=== PATIENT | female | born 1940 | race Caucasian/White ===

== ENCOUNTER 2017-02-10 10:33 | Inpatient (IN) | payer MEDICARE, MEDICAID ==
[~2017-02-10] VITALS: Ht 167.6 cm; Wt 74.8 kg
[~2017-02-10 10:33] MED LIST: CLON0.5T4 PO; DONE10TA44 PO; ESCI10TA PO; ESOM40CA PO; IBUP-1955 PO; LEVO50TA8 PO; MEMA5TAB PO; RIVA1PAT3 TD; VALS1TAB6 PO
--- NOTE | 2017-02-10 10:40 | NUR ---
Pt bib ra from home for back pain x 3 weeks, chronic back pain. Pt no s/sx of sob. Made pt comfortable and safety measures in placed
[2017-02-10] MEDS ORDERED: ACETAMINOPHEN ES 500 MG TABLET PO ONE (11:00)
[2017-02-10 11:05] LABS: BASOPHILS % (AUTO) 0.4 % (0.0-2.0); EOSINOPHILS % (AUTO) 0.7 % (0.0-6.0); HEMATOCRIT 23 % (33-45); HEMOGLOBIN 7.5 g/dL (11.5-14.8); LYMPHOCYTES # (AUTO) 1.3 /CMM (0.8-4.8); LYMPHOCYTES % (AUTO) 30.6 % (20.0-44.0); MEAN CORPUSCULAR HEMOGLOBIN 29 PG (26.0-33.0); MEAN CORPUSCULAR HGB CONC 33 g/dl (31.0-36.0); MEAN CORPUSCULAR VOLUME 88 fL (82-100); MONOCYTES # (AUTO) 0.3 /CMM (0.1-1.30); MONOCYTES % (AUTO) 6.9 % (2.0-12.0); NEUTROPHILS # (AUTO) 2.8 /CMM (1.8-8.9); NEUTROPHILS % (AUTO) 61.4 % (43.0-81.0); PLATELET COUNT (AUTO) 282 /CMM (150-450); RDW COEFFICIENT OF VARIATION 15.5 (11.5-15.0); WHITE BLOOD COUNT (AUTO) 4.4 K/uL (4.3-11.0)
[2017-02-10 11:16] LABS: CALCIUM, SERUM 7.5 mg/dL (8.5-10.1); CREATININE 0.9 mg/dL (0.6-1.3); POTASSIUM 3.6 mmol/L (3.5-5.1)
[2017-02-10 11:26] LABS: ALBUMIN 2.5 g/dL (3.4-5.0); BILIRUBIN,DIRECT 0.1 mg/dL (0.0-0.2); BILIRUBIN,TOTAL 0.5 mg/dL (0.2-1.0); TOTAL PROTEIN, SERUM 12.4 g/dL (6.4-8.2)
[2017-02-10] MEDS ORDERED: MORPHINE SULFATE INJ 2 MG/ML DISP.SYRIN ONE ×2 (11:28→12:58)
[2017-02-10] MEDS ORDERED: ONDANSETRON 4 MG TAB.RAPDIS ONE (11:28)
[2017-02-10] MEDS ORDERED: MORPHINE SULFATE INJ 2 MG/ML DISP.SYRIN IM ONE (11:30)
[2017-02-10] MEDS ORDERED: ONDANSETRON 4 MG TAB.RAPDIS SL ONE (11:30)
[2017-02-10] MEDS ORDERED: GADOVERSETAMIDE 5 MMOL/10 ML VIAL IJ ONE (12:00)
[2017-02-10] MEDS ORDERED: GADOVERSETAMIDE 2.5 MMOL/5 ML VIAL IJ ONE (12:00)
--- NOTE | 2017-02-10 12:45 | NUR ---
CALLED NURSING SUP. FOR MS BED
--- NOTE | 2017-02-10 12:51 | NUR ---
EPIC PAGED, VIDEO GAME ENGINEER
[2017-02-10] MEDS ORDERED: MORPHINE SULFATE INJ 2 MG/ML DISP.SYRIN IV ONE (13:00)
[2017-02-10] MEDS ORDERED: MAG HYDROX/AL HYDROX/SIMETH 30 ML UDC PO PRN (13:00)
--- NOTE | 2017-02-10 13:10 | NUR ---
PT WILL GO TO MS 203
[2017-02-10 13:29] LABS: IRON, SERUM 56 ug/dl (50-175); TOTAL IRON BINDING CAPACITY 245 ug/dl (250-450)
--- NOTE | 2017-02-10 13:37 | NUR ---
GAVE REPORT TO [facility] ROOM 203
--- NOTE | 2017-02-10 14:14 | NUR ---
TRANSPORT PT TO [facility]. PT TRANSFER IN STABLE CONDITION
[2017-02-10 14:41] LABS: APPEARANCE,URINE Cloudy (CLEAR); BILIRUBIN,URINE Negative (NEGATIVE); BLOOD, URINE Negative Ery/uL (NEGATIVE); COLOR,URINE Yellow (YELLOW); KETONES,URINE Negative (NEGATIVE); LEUKOCYTE ESTERASE ,URINE Trace (NEGATIVE); NITRITE, URINE Negative (NEGATIVE); PH,URINE 7.5 (5.0-8.0); PROTEIN,URINE 30 mg/dl (NEGATIVE); UGLUCOSE Negative (NEGATIVE); UROBILINOGEN,URINE 0.2 EU/dL (0.2)
[2017-02-10 14:53] LABS: RBC,URINE 0-2 /HPF (0-2)
[2017-02-10 14:54] LABS: ADD URINE CULTURE YES; BACTERIA,URINE Many /HPF (None Seen); SQUAMOUS EPITHELIAL CELL,UR Few /HPF (None Seen)
--- NOTE | 2017-02-10 14:54 | NUR ---
MS RN INITIAL NOTES PATIENT RECEIVED FROM ER. NO SOB OR DISTRESS NOTED AT THIS TIME. PATIENT IS COMPLAINING OF PAIN. VITALS CHECKED AND RECORDED. DR HERNANDEZ ON FLOOR. MD HAS CONSULTED DR HEREDIA. STATES TO NO BLOOD NEEDED FOR NOW AND TO MONITOR CLOSELY. WILL CONTINUE TO MONITOR AND FOLLOW UP ON PAIN MEDS.
[2017-02-10] MEDS: IV NS 0.9% 1,000 ML IV PRN (15:42)
[2017-02-10] MEDS: HYDROCODONE/APAP 5/325MG 1 EACH TABLET PO PRN (15:43)
--- NOTE | 2017-02-10 15:58 | NUR ---
MS RN NOTES ASKED FAMILY ABOUT THE EXCELON PATCH. DAUGHTERS DO NOT KNOW THE DOSE, THEY STATE THEY WILL FIND OUT WHEN THEY GO HOME LATER TONIGHT.
[2017-02-10 16:00] VITALS: BP 132/69
--- NOTE | 2017-02-10 16:17 | NUR ---
TEXTED DR. WOODS FOR MRI L SPINE APPROVAL.
--- NOTE | 2017-02-10 16:18 | NUR ---
MRI APPROVED.PLEASE HAVE MRI CHECKLIST READY.
[2017-02-10] MEDS: MEMANTINE HCL 5 MG TABLET PO SCH ×2 (16:51→16:53)
--- NOTE | 2017-02-10 16:59 | NUR ---
MS RN NOTES WAS UNABLE TO DO A FULL SKIN ASSESSMENT PATIENT IS IN TOO MUCH PAIN TO TURN. WILL ATTEMPT BEFORE END OF SHIFT OR ENDORSE TO QUALITY ANALYST/TECHNICAL WRITER. WAS UNABLE TO ASSESS BACK AND SACRUM. ALL OTHER SKIN IS INTACT.
[2017-02-10] MEDS ORDERED: Z GUARD REMEDY 2 OZ OINT TP PRN (17:00)
[2017-02-10] MEDS: HYDROMORPHONE 1 MG/1 ML DISP.SYRIN IV PRN (18:47)
[2017-02-10 18:54] LABS: THYROID STIMULATING HORMONE 1.656 uIU/mL (0.358-3.74)
[2017-02-10 19:00] VITALS: BP 145/78
--- NOTE | 2017-02-10 19:18 | NUR ---
MS RN CLOSING NOTES NO SIGNIFICANT CHANGES IN PATIENT CONDITION THROUGHOUT THE SHIFT. UNABLE TO ASSESS BACK AND SACRUM PATIENT REFUSES TO TURN DUE TO INTENSE PAIN. PATIENT DOWN STAIRS FOR MRI. TRAVEL DIRECTOR MERLE, STATES IT IS OK FOR ONE OF THE DAUGHTERS TO STAY TONIGHT WITH THE PATIENT IF THEY WOULD LIKE. WILL ENDORSE PATIENT FOR JON.
--- NOTE | 2017-02-10 20:00 | NUR ---
MS RN NOTE: PATIENT BACK FROM MRI, RESTING IN BED, NO ACUTE DISTRESS NOTED. FAMILY AT BEDSIDE. BREATHING EVEN AND UNLABORED, NO SOB NOTED. BED LOCKED AND IN LOWEST POSITION, CALL LIGHT IN REACH. WILL CONTINUE TO MONITOR.
[2017-02-10] MEDS: ONDANSETRON HCL/PF 4 MG/2 ML VIAL IVP PRN (20:27)
--- NOTE | 2017-02-10 20:30 | NUR ---
MS RN NOTE: PATIENT COMPLAINS OF NAUSEA, WITHOUT VOMITING PER TRANSLATION FROM DAUGHTER. ZOFRAN 4MG IV GIVEN PER MD ORDER. WILL CONTINUE TO MONITOR.
--- NOTE | 2017-02-10 20:45 | NUR ---
RN NOTE: RECEIVED CALL FROM PHARMACY TO VERIFY DOSE OF EXELON PATCH. ASKED PATIENT DAUGHTER AND PATIENT NO LONGER TAKING MEDICATIONS. PHARMACY INFORMED AND MEDICATION DISCONTINUED ON RECONCILED MEDICATIONS.
--- NOTE | 2017-02-10 21:00 | NUR ---
MS RN NOTE: RECEIVED CALL FROM RADIOLOGY DR. GOMES REGARDING MRI RESULTS, TO CONTACT ORDERING MD, DR. HEREDIA. CALLED DR. HEREDIA OFFICE NUMBER AND INFORM HER THAT THE MRI RESULTS WERE AVAILABLE IN THE PATIENT'S CHART FOR REVIEW. WILL CONTINUE TO MONITOR.
[2017-02-10] MEDS: ESCITALOPRAM OXALATE (10 MG) 10 MG TABLET PO SCH (21:08)
[2017-02-10] MEDS ORDERED: MAGNESIUM HYDROXIDE 30 ML UDC PO PRN (22:00)
[2017-02-10] MEDS ORDERED: ZOLPIDEM TARTRATE 5 MG TABLET PO PRN (22:00)
--- NOTE | 2017-02-11 06:20 | NUR ---
MS RN NOTE: PATIENT RESTING IN BED, NO ACUTE DISTRESS NOTED, FAMILY AT BEDSIDE. BREATHING EVEN AND UNLABORED, NO SOB NOTED. IV TO LFA IN PLACE, INFUSING NS AT 75 ML/HR. BED LOCKED AND IN LOWEST POSITION, CALL LIGHT IN REACH. WILL ENDORSE TO DAY NURSE TO CONTINUE WITH PLAN OF CARE.
[2017-02-11 07:24] LABS: BASOPHILS % (AUTO) 0.2 % (0.0-2.0); EOSINOPHILS % (AUTO) 0.2 % (0.0-6.0); HEMATOCRIT 21 % (33-45); LYMPHOCYTES # (AUTO) 1.1 /CMM (0.8-4.8); LYMPHOCYTES % (AUTO) 22.9 % (20.0-44.0); MEAN CORPUSCULAR HEMOGLOBIN 29 PG (26.0-33.0); MEAN CORPUSCULAR HGB CONC 33 g/dl (31.0-36.0); MEAN CORPUSCULAR VOLUME 89 fL (82-100); MONOCYTES # (AUTO) 0.3 /CMM (0.1-1.30); NEUTROPHILS # (AUTO) 3.5 /CMM (1.8-8.9); NEUTROPHILS % (AUTO) 69.7 % (43.0-81.0); PLATELET COUNT (AUTO) 247 /CMM (150-450); RDW COEFFICIENT OF VARIATION 16.8 (11.5-15.0); RED BLOOD CELL COUNT(AUTO) 2.34 MIL/uL (4.0-5.2)
[2017-02-11] MEDS: PANTOPRAZOLE 40 MG TABLET.DR PO SCH (07:30)
[2017-02-11 07:32] LABS: CALCIUM, SERUM 7.4 mg/dL (8.5-10.1); CREATININE 0.8 mg/dL (0.6-1.3); MAGNESIUM 1.9 mg/dL (1.8-2.4); PHOSPHORUS 4.7 mg/dL (2.5-4.9); POTASSIUM 3.9 mmol/L (3.5-5.1)
[2017-02-11 07:39] LABS: HEMOGLOBIN 6.7 g/dL (11.5-14.8)
[2017-02-11 08:00] VITALS: BP 142/68
--- NOTE | 2017-02-11 08:08 | NUR ---
WOUND CARE CONSULT: PATIENT SEEN AND SKIN ASSESSMENT NOT DONE PATIENT REFUSED DUE TO C/O SEVERE PAIN OF THE BACK. DAUGHTER AT BEDSIDE FEEDING PATIENT. PATIENT ALERT, ORIENTED, CURRENTLY IMMOBILE EXCEPT USE OF BILATERAL UPPER EXTREMITIES, UNABLE TO TURN AND REPOSITION, CONTINENT, JOSHUA 15, LESTER ISOFLEX LOW AIR LOSS MATTRESS IN USE. RECOMMEND PRESSURE PREVENTION MEASURES, TURN AND REPOSITION EVERY 2 HRS PATIENT CONDITION PERMITS, OFFLOAD BOTH HEELS, MOISTURE PROTECTION WITH Z GUARD PRN ORDERED. RECOMMENDATIONS DISCUSSED WITH NURSING STAFF. MD IN AGREEMENT WITH PLAN OF CARE.
[2017-02-11 08:17] LABS: IMMUNOGLOBULIN A, SERUM 34 mg/dL (64-422); IMMUNOGLOBULIN M, SERUM 24 mg/dL (26-217)
[2017-02-11] MEDS: LEVOTHYROXINE SODIUM 50 MCG TABLET PO SCH (08:51)
[2017-02-11] MEDS: DONEPEZIL 5 MG TABLET PO SCH (08:54)
[2017-02-11] MEDS: VALSARTAN 80 MG TABLET PO SCH (08:55)
[2017-02-11] MEDS: HYDROCHLOROTHIAZIDE 25 MG TABLET PO SCH (08:55)
[2017-02-11] MEDS: MEMANTINE HCL 5 MG TABLET PO SCH ×2 (08:55→16:41)
[2017-02-11] MEDS ORDERED: RIVASTIGMINE TD SCH (09:00)
[2017-02-11] MEDS ORDERED: clonazePAM 0.5 MG TABLET PO PRN (09:00)
[2017-02-11 09:03] LABS: ANISOCYTOSIS 1+; BAND % (MANUAL) 3 % (0.0-5.0); EOSINOPHILS % (MANUAL) 1 % (0-4); HYPOCHROMASIA 2+; LYMPHOCYTES % (MANUAL) 21 % (16-48); MONOCYTES % (MANUAL) 6 % (0-11.0); NEUTROPHILS % (MANUAL) 69 (42-76); PLATELET ESTIMATE ADEQUATE
[2017-02-11 10:19] LABS: IMMUNOGLOBULIN G, SERUM 7865 mg/dL (700-1600)
[2017-02-11] MEDS: ONDANSETRON HCL/PF 4 MG/2 ML VIAL IVP PRN (12:33)
[2017-02-11] MEDS: HYDROMORPHONE 1 MG/1 ML DISP.SYRIN IV PRN (14:00)
[2017-02-11] MEDS ORDERED: BLOOD IV SET 1 EA INFUS.SET MC ONE (14:34)
[2017-02-11] MEDS ORDERED: IV NS 0.9% 250 ML IV ONE (14:34)
[2017-02-11 15:49] VITALS: BP 141/70
[2017-02-11 16:00] VITALS: BP 138/68
[2017-02-11 16:05] VITALS: BP 138/68
[2017-02-11] MEDS ORDERED: LIDOCAINE 1% INJ 50 ML MDV IJ ONE (18:00)
[2017-02-11] MEDS: MORPHINE SULFATE SR 15 MG TABLET.SA PO SCH (18:00)
[2017-02-11] MEDS: DOCUSATE SODIUM 100 MG CAPSULE PO SCH (18:51)
[2017-02-11] MEDS: CIPROFLOXACIN HCL 250 MG TABLET PO SCH (18:51)
--- NOTE | 2017-02-11 19:04 | NUR ---
M/S RN - NOTE CALLED [facility] FOR LUMBAR BRACE LEFT MESSAGE.
[2017-02-11 20:00] VITALS: BP 134/67
--- NOTE | 2017-02-11 20:00 | NUR ---
MS RN NOTES H/H REPEAT RESULT WAS 7.12/18.ORDERED TO TRANSFUSE IF HGB IS LESS THAN 7.
--- NOTE | 2017-02-11 20:00 | NUR ---
MS RN NOTES RECEIVED ON BED A/O X2-3,SPEAK BAHAMIAN ONLY,APPEARS PALE,S/P BLOOD TRANSFUSION OF 1 UNIT PRBC FOR H/H OF 6.7. REPEAT H/H WAS DRAWN TO RE CHECK VALUES POST TRANSFUSION.VISITOR AT BEDSIDE.NS AT 75ML/HR RATE IN PROGRESS VIA IV PUMP ON LFA.SITE PATENT.NO S/S OF INFILTRATION NOTED.CALL LIGHT IN REACH,NEEDS ANTICIPATED.
[2017-02-11 21:11] LABS: HEMOGLOBIN 7.1 g/dL (11.5-14.8)
--- NOTE | 2017-02-11 21:30 | NUR ---
MS RN NOTES DUE LEXAPRO 10MG PO GIVEN,TAKEN WELL.
[2017-02-11] MEDS: ESCITALOPRAM OXALATE (10 MG) 10 MG TABLET PO SCH (21:37)
[2017-02-11 22:31] VITALS: BP 134/67
--- NOTE | 2017-02-12 01:00 | NUR ---
MS RN NOTES SLEEPING,KEPT WARM AND COMFORTABLE.REFUSED TO BE REPOSITION.SON AT BEDSIDE
--- NOTE | 2017-02-12 02:00 | NUR ---
MS RN NOTE RECEIVED PATIENT FROM CHUCHO KING. PATIENT ASLEEP IN BED WITH SON AT BEDSIDE. NO DISTRESS OR DISCOMFORT NOTED. PER REPORT, FAMILY HAS REFUSED BONE MARROW BIOPSY FOR TODAY. WILL CONTINUE TO MONITOR.
[2017-02-12 06:43] LABS: BASOPHILS % (AUTO) 0.4 % (0.0-2.0); EOSINOPHILS % (AUTO) 0.2 % (0.0-6.0); HEMATOCRIT 22 % (33-45); HEMOGLOBIN 7.4 g/dL (11.5-14.8); LYMPHOCYTES # (AUTO) 1.3 /CMM (0.8-4.8); LYMPHOCYTES % (AUTO) 26.7 % (20.0-44.0); MEAN CORPUSCULAR HEMOGLOBIN 29 PG (26.0-33.0); MEAN CORPUSCULAR HGB CONC 33 g/dl (31.0-36.0); MEAN CORPUSCULAR VOLUME 87 fL (82-100); MONOCYTES # (AUTO) 0.4 /CMM (0.1-1.30); MONOCYTES % (AUTO) 9.4 % (2.0-12.0); NEUTROPHILS % (AUTO) 63.3 % (43.0-81.0); PLATELET COUNT (AUTO) 220 /CMM (150-450); RDW COEFFICIENT OF VARIATION 16.4 (11.5-15.0); RED BLOOD CELL COUNT(AUTO) 2.55 MIL/uL (4.0-5.2); WHITE BLOOD COUNT (AUTO) 4.8 K/uL (4.3-11.0)
[2017-02-12] MEDS: LEVOTHYROXINE SODIUM 50 MCG TABLET PO SCH (06:47)
[2017-02-12] MEDS: PANTOPRAZOLE 40 MG TABLET.DR PO SCH (06:47)
[2017-02-12 06:49] LABS: ALBUMIN 2.2 g/dL (3.4-5.0); BILIRUBIN,TOTAL 0.5 mg/dL (0.2-1.0); CALCIUM, SERUM 7.8 mg/dL (8.5-10.1); CREATININE 0.9 mg/dL (0.6-1.3); POTASSIUM 3.3 mmol/L (3.5-5.1); TOTAL PROTEIN, SERUM 10.9 g/dL (6.4-8.2)
[2017-02-12 06:52] LABS: INR 1.09 (0.87-1.13); PROTHROMBIN TIME 11.7 SECS (9.5-12.7)
--- NOTE | 2017-02-12 06:54 | NUR ---
ms rn note patient asleep comfortably in bed. son at bedside. Kept clean, dry and comfortable. Will endorse to day shift for lili.
--- NOTE | 2017-02-12 07:30 | NUR ---
MS RN NOTES RECEIVED PATIENT AWAKE IN BED, BREATHING EVEN AND NON LABORED, DENIES ANY PAIN AT THIS TIME, SON AT BEDSIDE. WITH LFA #20 IVF'S ON PROGRESS. CALL LIGHT WITHIN REACH, WILL CONTINUE TO MONITOR.
[2017-02-12 08:00] VITALS: BP 140/68
[2017-02-12] MEDS: MEMANTINE HCL 5 MG TABLET PO SCH ×3 (09:18→17:48)
[2017-02-12] MEDS: MORPHINE SULFATE SR 15 MG TABLET.SA PO SCH ×2 (09:18→21:00)
[2017-02-12] MEDS: HYDROCHLOROTHIAZIDE 25 MG TABLET PO SCH (09:18)
[2017-02-12] MEDS: DOCUSATE SODIUM 100 MG CAPSULE PO SCH ×2 (09:18→17:48)
[2017-02-12] MEDS: CIPROFLOXACIN HCL 250 MG TABLET PO SCH ×2 (09:18→21:28)
[2017-02-12] MEDS: DONEPEZIL 5 MG TABLET PO SCH (09:19)
[2017-02-12] MEDS: VALSARTAN 80 MG TABLET PO SCH (09:19)
[2017-02-12] MEDS ORDERED: POTASSIUM CHLORIDE 20 MEQ TAB.PRT.SR PO ONE (10:00)
[2017-02-12] MEDS: IV NS 0.9% 1,000 ML IV PRN ×2 (11:04→22:05)
--- NOTE | 2017-02-12 11:30 | NUR ---
MS RN NOTES DR. HEREDIA SPOKE AND EXPLAINED TO THE FAMILY AT BEDSIDE REGARDING THE BONE MARROW PROCEDURE. FAMILY VERBALIZED UNDERSTANDING.
[2017-02-12] MEDS: HYDROMORPHONE 1 MG/1 ML DISP.SYRIN IV PRN (11:46)
--- NOTE | 2017-02-12 12:00 | NUR ---
MS RN NOTES BONE MARROW BX DONE BY DR. HEREDIA AT BEDSIDE. NO BLEEDING NOTED FROM THE SITE.
--- NOTE | 2017-02-12 13:30 | NUR ---
MS RN NOTES NO BLEEDING NOTED ON HER RIGHT ILIAC CREST S/P BONE MARROW BX. DRESSING DRY AND INTACT. WILL CONTINUE TO MONITOR.
--- NOTE | 2017-02-12 14:30 | NUR ---
M/S RN - NOTES CALLED [facility] NO. [phone]. TO FOLLOW UP THE LUMBAR BRACE. BUT OFFICE IS CLOSE. WILL FOLLOW UP AGAIN ON TUESDAY. WILL ENDORSE TO THE NEXT SHIFT.
[2017-02-12 16:00] VITALS: BP 136/77
--- NOTE | 2017-02-12 17:53 | NUR ---
MS RN NOTES PER DAUGHTER THEY REQUESTED NOT TO GIVE THE ARICEPT AND NAMENDA. WILL FOLLOW UP WITH MD HOU.
--- NOTE | 2017-02-12 19:50 | NUR ---
MS RN INITIAL NOTES: RECEIVED REPORT FROM LY RANKIN. PT ON BED, AWAKE, A/O X3 COMORAN SPEAKING FAMILY AT BED SIDE, PT ON 2L VIA NC, DENIES ANY PAIN OR DISCOMFORT AT THIS TIME. S/P BONE MARROW BIOPSY 02/12/[address] DAMIEN HEREDIA, RIGHT ILIAC CREST DRESSING IN PLACED, C/D/I. NO ACTIVE BLEEDING NOTED. IV ACCESS PATENT AND FLUSHING WELL, INFUSING WITH NS AT 75ML/HR. SAFETY PRECAUTION FOR FALL INITIATED CALL LIGHT IN REACH, WILL CONTINUE TO MONITOR
[2017-02-12 20:00] VITALS: BP 148/70
--- NOTE | 2017-02-12 20:00 | NUR ---
MS RN NOTES: PER REPORT, AFTER BONE MARROW ASPIRATION BIOPSY SPECIMEN WAS SENT TO LAB FOR CYTOLOGY AND MORPHOLOGY
[2017-02-12] MEDS: ESCITALOPRAM OXALATE (10 MG) 10 MG TABLET PO SCH (21:28)
--- NOTE | 2017-02-12 21:29 | NUR ---
MS RN NOTES: MS CONTIN NOT ADMINISTERED AT THIS TIME, PT STATED SHE HAS NO PAIN, ALSO FAMILY AT BED SIDE STATED/TRANSLATE PT HAS NO PAIN AND THAT PAIN MEDICATION MAKES THE PTMORE SLEEPY AND SINCE SHE HAS NO PAIN THERE'SNO REASON TO GIVE IT, EDUCATE PT AND FAMILY REGARDING MEDICATION ACTION AND SIDE EFFECT,
[2017-02-13 06:42] LABS: CALCIUM, SERUM 7.3 mg/dL (8.5-10.1); CREATININE 0.8 mg/dL (0.6-1.3); POTASSIUM 3.4 mmol/L (3.5-5.1)
--- NOTE | 2017-02-13 06:49 | NUR ---
MS RN CLOSING NOTES: PT ON BED, AWAKE, REMAINS ON 2L VIA NC, DDENIES ANY SOB OR PAIN AT THIS TIME. RIGHT ILIAC CREST DRESSING REMAINS C/D/I. NO ACTIVE BLEEDING NOTED. IV ACCESS REMAINS PATENT AND FLUSHING WELL, INFUSING WITH NS AT 75ML/HR. VS REMAINS STABLE, NEEDS ATTENDED. BLE KEPT OFFLOADED. SAFETY PRECAUTIONS FOR FALL REMAINS ENGAGED, CALL LIGHT IN REACH, WILL ENDORSE TO DAY RN FOR JON.
--- NOTE | 2017-02-13 07:25 | NUR ---
RN NOTES: RECEIVED PT ON BED, AWAKE, A/O X3 HUNGARIAN SPEAKING FAMILY AT BED SIDE, PT ON 2L VIA NC, DENIES ANY PAIN OR DISCOMFORT AT THIS TIME. S/P BONE MARROW BIOPSY 02/12/[address] DAMIEN HEREDIA, RIGHT ILIAC CREST DRESSING IN PLACED, C/D/I. NO ACTIVE BLEEDING NOTED. IV ACCESS PATENT AND FLUSHING WELL, INFUSING WITH NS AT 75ML/HR. SAFETY PRECAUTION FOR FALL INITIATED CALL LIGHT IN REACH, WILL CONTINUE TO MONITOR
[2017-02-13 08:00] VITALS: BP 155/80
[2017-02-13] MEDS: PANTOPRAZOLE 40 MG TABLET.DR PO SCH (08:29)
[2017-02-13] MEDS: DOCUSATE SODIUM 100 MG CAPSULE PO SCH ×2 (08:29→16:34)
[2017-02-13] MEDS: VALSARTAN 80 MG TABLET PO SCH (08:29)
[2017-02-13] MEDS: LEVOTHYROXINE SODIUM 50 MCG TABLET PO SCH (08:29)
[2017-02-13] MEDS: CIPROFLOXACIN HCL 250 MG TABLET PO SCH (08:29)
[2017-02-13] MEDS: MORPHINE SULFATE SR 15 MG TABLET.SA PO SCH ×2 (08:30→21:00)
[2017-02-13] MEDS: DONEPEZIL 5 MG TABLET PO SCH (08:30)
[2017-02-13] MEDS: HYDROCHLOROTHIAZIDE 25 MG TABLET PO SCH (08:30)
[2017-02-13] MEDS: MEMANTINE HCL 5 MG TABLET PO SCH ×2 (08:32→16:34)
[2017-02-13] MEDS: ACETAMINOPHEN 325 MG TABLET PO PRN ×2 (09:56→21:35)
--- NOTE | 2017-02-13 10:00 | NUR ---
RN NOTES TEMPERATURE NOTED AT 101.4 TYLENOL AND COOLING MEASURES PROVIDED DR. RODAS MADE AWARE, WILL CONTINUE TO MONITOR
--- NOTE | 2017-02-13 10:30 | NUR ---
RN NOTES TEMPERATURE NOTED AT 99.1 WILL CONTINUE TO MONITOR
[2017-02-13] MEDS ORDERED: POTASSIUM CHLORIDE 20 MEQ TAB.PRT.SR PO ONE (11:00)
--- NOTE | 2017-02-13 11:30 | NUR ---
RN NOTES TEMPERATURE NOTED AT 98.2 WILL CONTINUE TO MONITOR
[2017-02-13] MEDS: IV NS 0.9% 1,000 ML IV PRN (11:34)
[2017-02-13 14:01] LABS: BASOPHILS % (AUTO) 0.4 % (0.0-2.0); EOSINOPHILS % (AUTO) 0.7 % (0.0-6.0); HEMATOCRIT 22 % (33-45); HEMOGLOBIN 7.4 g/dL (11.5-14.8); LYMPHOCYTES # (AUTO) 0.7 /CMM (0.8-4.8); LYMPHOCYTES % (AUTO) 18.3 % (20.0-44.0); MEAN CORPUSCULAR HEMOGLOBIN 29 PG (26.0-33.0); MEAN CORPUSCULAR HGB CONC 34 g/dl (31.0-36.0); MEAN CORPUSCULAR VOLUME 88 fL (82-100); MONOCYTES # (AUTO) 0.4 /CMM (0.1-1.30); MONOCYTES % (AUTO) 9.3 % (2.0-12.0); NEUTROPHILS # (AUTO) 2.9 /CMM (1.8-8.9); NEUTROPHILS % (AUTO) 71.3 % (43.0-81.0); PLATELET COUNT (AUTO) 200 /CMM (150-450); RDW COEFFICIENT OF VARIATION 16.5 (11.5-15.0); RED BLOOD CELL COUNT(AUTO) 2.51 MIL/uL (4.0-5.2)
[2017-02-13 16:00] VITALS: BP 140/70
--- NOTE | 2017-02-13 18:05 | NUR ---
RN NOTES ALL DUE MEDICATIONS GIVEN ORDERED, NO ASE NOTED AT THIS TIME,PATIENT AND FAMILY CONTINUE TO REFUSE ADMINISTRATION OF NAMENDA ARICEPT AND MS CONTIN, DR. RODAS AWARE, WILL CONTINUE TO MONITOR
[2017-02-13 19:03] LABS: APPEARANCE,URINE SL CLOUDY (CLEAR); BILIRUBIN,URINE NEGATIVE (NEGATIVE); BLOOD, URINE 1+ Ery/uL (NEGATIVE); COLOR,URINE YELLOW (YELLOW); KETONES,URINE NEGATIVE (NEGATIVE); LEUKOCYTE ESTERASE ,URINE 1+ (NEGATIVE); NITRITE, URINE NEGATIVE (NEGATIVE); PH,URINE 5.5 (5.0-8.0); PROTEIN,URINE NEGATIVE (NEGATIVE); UGLUCOSE NEGATIVE (NEGATIVE); UROBILINOGEN,URINE 0.2 EU/dL (0.2)
--- NOTE | 2017-02-13 19:30 | NUR ---
RN NOTE; RECEIVED PT LAYING IN BED RESTING. AWAKE AND RESPONSIVE. W/ FAMILY AT THE BED SIDE. BREATHING EVENLY. NO SOB. NO DISTRESS. SKIN WARM AND DRY. NO EPISODE OF COUGH . NO C/O PAIN OR DISCOMFORT. ON ONGOING IVF HYDRATION. AFEBRILE AT THIS TIME. NEEDS ATTENDED. CALL LIGHT WITHIN REACH. WILL CONT TO MONITOR.
[2017-02-13 19:33] LABS: ADD URINE CULTURE YES; BACTERIA,URINE 1+ /HPF (None Seen); SQUAMOUS EPITHELIAL CELL,UR 0-2 /HPF (None Seen)
[2017-02-13 20:00] VITALS: BP 138/72
[2017-02-13 20:34] VITALS: BP 138/72
[2017-02-13] MEDS ORDERED: IV D5W 50 ML IV ONE (21:09)
[2017-02-13] MEDS ORDERED: CEFTRIAXONE 1 G VIAL ONE (21:09)
[2017-02-13] MEDS ORDERED: SECONDARY IV SET 1 EA INFUS.SET MC ONE (21:09)
[2017-02-13] MEDS: CEFTRIAXONE 1 G in IV D5W 50 ML IV SCH (21:33)
[2017-02-13] MEDS: ESCITALOPRAM OXALATE (10 MG) 10 MG TABLET PO SCH (21:34)
--- NOTE | 2017-02-13 21:35 | NUR ---
TYLENOL GIVEN FOR BACK PAIN AND TEMP:101. PT COVERED W/ LOTS OF BLANKETS WHICH WAS REMOVED AND INSTRUCTED PT AND THE FAMILY NOT TO USE TOO MANY BLANKETS TO PREVENT ELEVATED TEMP. COOLING MEASURES APPLIED . WILL CON TO MONITOR
--- NOTE | 2017-02-13 21:35 | NUR ---
FAMILY REFUSED MS CONTIN X3. RISK VS. BENEFITS EXPLAINED TO THE PT AND THE FAMILY. PT W/ NO C/O PAIN AT THIS TIME EXCEPT UPON REPOSITIONING WILL CONT TO MONITOR.
--- NOTE | 2017-02-13 22:00 | NUR ---
RECHECKED THE TEMP: 99.9. WILL CONT TO MONITOR
[2017-02-14] MEDS: IV NS 0.9% 1,000 ML IV PRN (01:37)
--- NOTE | 2017-02-14 06:29 | NUR ---
RN NOTE; PT IN BED W/ DTR AT THE BED SIDE. BREATHING EVENLY. NO SOB. NO DISTRESS. NO C/O PAIN OR DISCOMFORT. REMAINED COMFORTABLE . CLEANED AND DRIED. REPOSITIONED. BED LOW LOCKED. RX2. CALL LIGHT WITHIN REACH. WILL CONT TO MONITOR AND WILL ENDORSE TO AM SHIFT FOR JON
[2017-02-14 06:43] LABS: BASOPHILS % (AUTO) 0.2 % (0.0-2.0); EOSINOPHILS % (AUTO) 0.4 % (0.0-6.0); HEMATOCRIT 24 % (33-45); HEMOGLOBIN 7.8 g/dL (11.5-14.8); LYMPHOCYTES # (AUTO) 0.7 /CMM (0.8-4.8); LYMPHOCYTES % (AUTO) 21.9 % (20.0-44.0); MEAN CORPUSCULAR HEMOGLOBIN 29 PG (26.0-33.0); MEAN CORPUSCULAR HGB CONC 33 g/dl (31.0-36.0); MEAN CORPUSCULAR VOLUME 88 fL (82-100); MONOCYTES # (AUTO) 0.4 /CMM (0.1-1.30); NEUTROPHILS # (AUTO) 2.2 /CMM (1.8-8.9); NEUTROPHILS % (AUTO) 66.5 % (43.0-81.0); PLATELET COUNT (AUTO) 195 /CMM (150-450); RDW COEFFICIENT OF VARIATION 16.4 (11.5-15.0); RED BLOOD CELL COUNT(AUTO) 2.69 MIL/uL (4.0-5.2); WHITE BLOOD COUNT (AUTO) 3.3 K/uL (4.3-11.0)
[2017-02-14 07:06] LABS: *SPE A/G RATIO 0.5 (0.7-1.7); *SPE ALBUMIN 3.6 g/dL (2.9-4.4); *SPE ALPHA-1-GLOBULIN 0.2 g/dL (0.0-0.4); *SPE ALPHA-2-GLOBULIN 0.7 g/dL (0.4-1.0); *SPE BETA GLOBULIN 0.8 g/dL (0.7-1.3); *SPE GLOBULIN, TOTAL 7.3 g/dL (2.2-3.9); *SPE M-SPIKE 5.4 g/dL (Not Observed); *SPE PROTEIN TOTAL 10.9 g/dL (6.0-8.5); *SPEGAMMA GLOBULIN 5.6 g/dL (0.4-1.8)
[2017-02-14 07:14] LABS: CALCIUM, SERUM 7.3 mg/dL (8.5-10.1); CREATININE 0.7 mg/dL (0.6-1.3)
--- NOTE | 2017-02-14 07:30 | NUR ---
PT RECEIVED RESTING COMFORTABLY IN BED WITH EYES CLOSED. NO S/S OR C/O PAIN OR DISTRESS NOTED. SIDE RAILS UP X2, CALL LIGHT LEFT WITHIN REACH. WILL CONTINUE PLAN OF CARE.
[2017-02-14 08:00] VITALS: BP 139/69
[2017-02-14] MEDS: HYDROCHLOROTHIAZIDE 25 MG TABLET PO SCH (09:00)
[2017-02-14] MEDS: MORPHINE SULFATE SR 15 MG TABLET.SA PO SCH ×2 (09:00→21:00)
[2017-02-14] MEDS: DONEPEZIL 5 MG TABLET PO SCH (09:00)
[2017-02-14] MEDS: MEMANTINE HCL 5 MG TABLET PO SCH ×2 (09:00→17:00)
[2017-02-14] MEDS: LEVOTHYROXINE SODIUM 50 MCG TABLET PO SCH (09:07)
[2017-02-14] MEDS: PANTOPRAZOLE 40 MG TABLET.DR PO SCH (09:09)
[2017-02-14] MEDS: DOCUSATE SODIUM 100 MG CAPSULE PO SCH ×2 (09:09→18:42)
[2017-02-14] MEDS: VALSARTAN 80 MG TABLET PO SCH (09:09)
[2017-02-14] MEDS: ACETAMINOPHEN 325 MG TABLET PO PRN (09:10)
[2017-02-14] MEDS: POTASSIUM CHLORIDE 20 MEQ TAB.PRT.SR PO SCH ×3 (12:32→18:42)
[2017-02-14] MEDS: MEGESTROL ACETATE 40 MG TABLET PO SCH ×2 (12:33→18:42)
[2017-02-14] MEDS: HYDROCODONE/APAP 5/325MG 1 EACH TABLET PO PRN (12:33)
[2017-02-14 16:00] VITALS: BP 119/56
--- NOTE | 2017-02-14 18:30 | NUR ---
CHANGE OF SHIFT REPORT PT RESTING COMFORTABLY IN BED. NO S/S OR C/O PAIN OR DISTRESS NOTED. SIDE RAILS UP X2, CALL LIGHT LEFT WITHIN REACH. PT KEPT CLEAN, DRY, AND COMFORTABLE. NO SIGNIFICANT CHANGES FROM PREVIOUS SHIFT. WILL GIVE REPORT TO LLOYD RANKIN.
--- NOTE | 2017-02-14 19:30 | NUR ---
RN NOTE; RECEIVED PT LAYING IN BED RESTING. AWAKE AND RESPONSIVE. W/ FAMILY AT THE BED SIDE. BREATHING EVENLY. NO SOB. NO DISTRESS. SKIN WARM AND DRY.. NO C/O PAIN OR DISCOMFORT. ON ONGOING IVF HYDRATION.. CALL LIGHT WITHIN REACH. WILL CONT TO MONITOR.
[2017-02-14 20:00] VITALS: BP 145/75
--- NOTE | 2017-02-14 20:53 | NUR ---
FAMILY IS REQUESTING SUPPOSITORY FOR CONSTIPATION. PER PT'S MR SHE HAD NOT BM FOR PAST FEW DAYS. PLACED A CALL TO DR. RIVAS AND ASKED FOR AN ORDER. W/ Harleen NEW ORDER. NOTED . WILL CONT TO MONITOR
[2017-02-14] MEDS ORDERED: BISACODYL SUPP (10 MG) 10 MG/SUPP.RECT SUPP.RECT RC PRN (21:00)
[2017-02-14] MEDS: CEFTRIAXONE 1 G in IV D5W 50 ML IV SCH (21:01)
[2017-02-14] MEDS: ESCITALOPRAM OXALATE (10 MG) 10 MG TABLET PO SCH (21:01)
[2017-02-14] MEDS: HYDROMORPHONE 1 MG/1 ML DISP.SYRIN IV PRN (23:43)
--- NOTE | 2017-02-14 23:43 | NUR ---
DILAUDID GIVEN PER FAMILY REQUEST AND PT'S C/O PAIN. WILL CONT TO MONITOR
--- NOTE | 2017-02-15 01:02 | NUR ---
RN NOTE; RECEIVED PT LAYING IN BED RESTING. AWAKE AND RESPONSIVE. W/ FAMILY AT THE BED SIDE. BREATHING EVENLY. NO SOB. NO DISTRESS. SKIN WARM AND DRY.. NO C/O PAIN OR DISCOMFORT. ON ONGOING IVF HYDRATION.. CALL LIGHT WITHIN REACH. WILL CONT TO MONITOR. Addendum: 02/15/17 at 0103 by SHERRILL BHANDARI RN WRONG TIME DOCUMENTATION
--- NOTE | 2017-02-15 06:25 | NUR ---
RN NOTE; PT IN BED AWAKE AND RESPONSIVE. BREATHING EVENLY. NO DISTRESS. NO C/O PAIN OR DISCOMFORT. SUPPOSITORY GIVEN , EFFECTIVE. ASSISTED W/ ADLS AND REPOSITIONING. CLEANED AND DRIED. CALL LIGHT WITHIN REACH. WILL CONT TO MONITOR AND WILL ENDORSE TO AM SHIFT FOR JON,
[2017-02-15 06:45] LABS: EOSINOPHILS % (AUTO) 0.1 % (0.0-6.0); HEMATOCRIT 25 % (33-45); HEMOGLOBIN 8.5 g/dL (11.5-14.8); LYMPHOCYTES # (AUTO) 0.9 /CMM (0.8-4.8); LYMPHOCYTES % (AUTO) 20.5 % (20.0-44.0); MEAN CORPUSCULAR HEMOGLOBIN 29 PG (26.0-33.0); MEAN CORPUSCULAR HGB CONC 34 g/dl (31.0-36.0); MEAN CORPUSCULAR VOLUME 87 fL (82-100); MONOCYTES # (AUTO) 0.3 /CMM (0.1-1.30); NEUTROPHILS # (AUTO) 3.3 /CMM (1.8-8.9); NEUTROPHILS % (AUTO) 72.4 % (43.0-81.0); PLATELET COUNT (AUTO) 227 /CMM (150-450); RDW COEFFICIENT OF VARIATION 16.1 (11.5-15.0); WHITE BLOOD COUNT (AUTO) 4.5 K/uL (4.3-11.0)
[2017-02-15 06:59] LABS: CALCIUM, SERUM 7.5 mg/dL (8.5-10.1); CREATININE 0.7 mg/dL (0.6-1.3); POTASSIUM 3.7 mmol/L (3.5-5.1)
[2017-02-15 08:00] VITALS: BP 137/78
--- NOTE | 2017-02-15 08:00 | NUR ---
MS 2 RN AM NOTES RECEIVED PT LAYING IN BED RESTING. AWAKE AND RESPONSIVE. W/ FAMILY AT BED SIDE. BREATHING EVENLY. NO SOB. NO DISTRESS. SKIN WARM AND DRY.. NO C/O PAIN OR DISCOMFORT. WITH ONGOING IVF HYDRATION INFUSING WELL. CALL LIGHT WITHIN REACH. WILL CONT TO MONITOR
[2017-02-15] MEDS: DONEPEZIL 5 MG TABLET PO SCH (09:00)
[2017-02-15] MEDS: MEMANTINE HCL 5 MG TABLET PO SCH ×2 (09:00→17:00)
[2017-02-15] MEDS: HYDROCHLOROTHIAZIDE 25 MG TABLET PO SCH (09:00)
[2017-02-15] MEDS: BOOST PLUS FOOD-VANILLA 237 ML BOX PO SCH ×2 (09:33→17:00)
[2017-02-15] MEDS: VALSARTAN 80 MG TABLET PO SCH (09:33)
[2017-02-15] MEDS: PANTOPRAZOLE 40 MG TABLET.DR PO SCH (09:34)
[2017-02-15] MEDS: LEVOTHYROXINE SODIUM 50 MCG TABLET PO SCH (09:34)
[2017-02-15] MEDS: MEGESTROL ACETATE 40 MG TABLET PO SCH ×2 (09:34→17:19)
[2017-02-15] MEDS: MORPHINE SULFATE SR 15 MG TABLET.SA PO SCH ×2 (09:34→21:00)
[2017-02-15] MEDS: DOCUSATE SODIUM 100 MG CAPSULE PO SCH ×2 (09:34→17:19)
[2017-02-15 16:00] VITALS: BP 124/61
--- NOTE | 2017-02-15 18:00 | NUR ---
PT RESTING IN BED DENYING ANY PAIN OR DISTRESS.PT'S DAUGHTER INSISTS NOT TO GIVE PT'S MS CONTIN IN AM SAYING THAT HER MOM IS ALWAYS SLEEPING.
--- NOTE | 2017-02-15 19:40 | NUR ---
ms rn initial notes: received report from rosalia keating pt on bed, awake, a/o x3 setswana speaking, on 2l via nc, respiration even and unlabored, denies any pain or discomfort at this time. lfa iv g 20 patent and flushing well, infusing with ns at 75ml/hr. pt refusing scd, stated its hurting her legs, education provided to family and pt. pt able to work with physical therapy today, lumbar brace available at bed side, per PT to use when pt out of bed, but not when on bed. safety precautions for fall initiated call light in reach, will continue to monitor
[2017-02-15 20:00] VITALS: BP 141/68
[2017-02-15] MEDS ORDERED: IV SET PRIMARY PUMP SET 1 EA INFUS.SET MC ONE (20:07)
[2017-02-15] MEDS: ACETAMINOPHEN 325 MG TABLET PO PRN (20:19)
[2017-02-15] MEDS: IV NS 0.9% 1,000 ML IV PRN (20:19)
--- NOTE | 2017-02-15 20:19 | NUR ---
MS RN NOTES: PT NOTED TO HAVE TEMP OF 101.0, RECHECK 100.0, OFFERED COOLING MEASURES AND ICE PACK HOWEVER FAMILY REFUSED PT FEELING COLD,PRN TYLENOL 650MG TAB PO ADMINISTERED TO THE PT AT THIS TIME, REMOVED EXTRA THICK BLANKETS, MAKE ROOM COOLER. WILL CONTINUE TO MONITOR
--- NOTE | 2017-02-15 21:00 | NUR ---
MS RN NOTES: MS CONTIN NOT ADMINISTERED AT THIS TIME,PT'S DAUGHTER AT BED SIDE, SHE TRANSLATED HER MOTHER DENIES ANY PAIN, SHE SAID ITS BETTER NOT TO TAKE THE MEDICATION, EDUCATION PROVIDED TO THE PT AND FAMILY AT THIS TIME.
[2017-02-15] MEDS: SULFAMETH/TRIMETH 800/160 MG 1 UDTAB TABLET PO SCH (21:17)
[2017-02-15] MEDS: ESCITALOPRAM OXALATE (10 MG) 10 MG TABLET PO SCH (21:17)
--- NOTE | 2017-02-15 22:43 | NUR ---
ms rn notes: bed bath and complete linen changed provided by sabra gr.
--- NOTE | 2017-02-16 06:44 | NUR ---
MS RN CLOSING NOTES: PT ON BED, AWAKE, RESPIRATION EVEN AND UNLABORED, DENIES ANY SOB OR PAIN AT THIS TIME. RIGHT ILIAC CREST DRESSING REMAINS C/D/I. NO ACTIVE BLEEDING NOTED. IV ACCESS REMAINS PATENT AND FLUSHING WELL, INFUSING WITH NS AT 75ML/HR. VS REMAINS STABLE, NEEDS ATTENDED. BLE KEPT OFFLOADED. SAFETY PRECAUTIONS FOR FALL REMAINS ENGAGED, CALL LIGHT IN REACH, WILL ENDORSE TO DAY RN FOR JON.
[2017-02-16 07:28] LABS: CALCIUM, SERUM 7.1 mg/dL (8.5-10.1); CREATININE 0.6 mg/dL (0.6-1.3); POTASSIUM 3.3 mmol/L (3.5-5.1)
--- NOTE | 2017-02-16 07:30 | NUR ---
MS/RN Patient received Patient received from restaurant shift leader. No needs at this time, family at bedside, will continue to monitor.
[2017-02-16 08:00] VITALS: BP 135/68
[2017-02-16] MEDS: BOOST PLUS FOOD-VANILLA 237 ML BOX PO SCH ×2 (08:00→18:32)
[2017-02-16] MEDS: DOCUSATE SODIUM 100 MG CAPSULE PO SCH ×3 (08:53→18:12)
[2017-02-16] MEDS: SULFAMETH/TRIMETH 800/160 MG 1 UDTAB TABLET PO SCH ×2 (08:55→21:23)
[2017-02-16] MEDS: PANTOPRAZOLE 40 MG TABLET.DR PO SCH (08:55)
[2017-02-16] MEDS: HYDROCHLOROTHIAZIDE 25 MG TABLET PO SCH (08:55)
[2017-02-16] MEDS: LEVOTHYROXINE SODIUM 50 MCG TABLET PO SCH (08:55)
[2017-02-16] MEDS: MEGESTROL ACETATE 40 MG TABLET PO SCH ×2 (08:55→18:13)
[2017-02-16] MEDS: VALSARTAN 80 MG TABLET PO SCH (08:56)
[2017-02-16] MEDS: MORPHINE SULFATE SR 15 MG TABLET.SA PO SCH ×2 (08:59→21:00)
[2017-02-16] MEDS: MEMANTINE HCL 5 MG TABLET PO SCH ×2 (08:59→18:12)
[2017-02-16] MEDS: DONEPEZIL 5 MG TABLET PO SCH (09:00)
--- NOTE | 2017-02-16 09:19 | NUR ---
MS/RN Medications Morning medicationsadministered as per order.
--- NOTE | 2017-02-16 09:30 | NUR ---
MS/RN Refused MS Contin Patient's family refused for patient to be given scheduled MS contin.
[2017-02-16] MEDS: IV NS 0.9% 1,000 ML IV PRN (09:59)
[2017-02-16] MEDS ORDERED: POTASSIUM CHLORIDE 20 MEQ TAB.PRT.SR PO SCH (10:30)
--- NOTE | 2017-02-16 11:00 | NUR ---
MS/RN S/B Dr Yusuf Seen by Dr Yusuf - discharge planning, family to work with case management to find nursing facility. Labs ordered for tomorrow.
--- NOTE | 2017-02-16 11:30 | NUR ---
MS/RN Blood culture Blood culture X2 ordered and drawn by lab.
--- NOTE | 2017-02-16 11:45 | NUR ---
MS/RN Urine culture Urine culture ordered, patient's family refusing for patient to be straight cath'd. Will notify .
--- NOTE | 2017-02-16 13:30 | NUR ---
MS/RN Temperature Family requesting for patient's temperature to be taken. Oral temp 99, family made aware. Educated that patient should remove one of the blankets if feeling warm.
--- NOTE | 2017-02-16 15:00 | NUR ---
MS/RN S/B PT Seen by PT - out of bed with lumbar brace, able to ambulate to nursing station and back. Family refused for patient to be given any pain medication before or after PT.
[2017-02-16 16:00] VITALS: BP 139/70
--- NOTE | 2017-02-16 18:35 | NUR ---
MS/RN End note Received call from Dr Yusuf, patient will be discharged to home with home health tomorrow morning. No other changes at this time will endorse to film processing shift supervisor.
--- NOTE | 2017-02-16 19:30 | NUR ---
ms rn initial notes: received report from morelia. pt on bed, awake, a/o x3 persian speaking, on room air, respiration even and unlabored, denies any pain or discomfort at this time. lfa iv g 20 patent and flushing well,on hl. safety precautions for fall initiated call light in reach, will continue to monitor
[2017-02-16 19:55] VITALS: BP 127/71
[2017-02-16 20:00] VITALS: BP 127/71
[2017-02-16] MEDS: ESCITALOPRAM OXALATE (10 MG) 10 MG TABLET PO SCH (21:24)
--- NOTE | 2017-02-16 21:25 | NUR ---
MS RN NOTES: SCHEDULED MS CONTIN REFUSED BY PT AND FAMILY, STATED HER MOTHER NOT IN PAIN, EDUCATION PROVIDED TO THE PT AND FAMILY
--- NOTE | 2017-02-16 21:46 | NUR ---
MS RN NOTES: FAMILY REFUSING STRAIGHT CATHETERIZATION IN ORDER TO COLLECT URINE SPECIMEN, PT INCONTINENT USES DIAPER, NEEDS SPECIMEN FOR UA PROFILE AND CS, EDUCATE PT AND FAMILY
--- NOTE | 2017-02-17 07:11 | NUR ---
MS RN CLOSING NOTES: PT ON BED, AWAKE, RESPIRATION EVEN AND UNLABORED, DENIES ANY SOB OR PAIN AT THIS TIME. RFA IV ACCESS REMAINS PATENT AND FLUSHING WELL, ON HL. VS REMAINS STABLE, NEEDS ATTENDED. BLE KEPT OFFLOADED. EXIT CARE COMPLETED. POSSIBLE DC HOME WITH HOME HEALTH. SAFETY PRECAUTIONS FOR FALL REMAINS ENGAGED, CALL LIGHT IN REACH, WILL ENDORSE TO DAY RN FOR JON.
[2017-02-17 07:15] LABS: BASOPHILS % (AUTO) 0.3 % (0.0-2.0); EOSINOPHILS % (AUTO) 0.7 % (0.0-6.0); HEMATOCRIT 24 % (33-45); HEMOGLOBIN 8.1 g/dL (11.5-14.8); LYMPHOCYTES # (AUTO) 1.6 /CMM (0.8-4.8); LYMPHOCYTES % (AUTO) 30.6 % (20.0-44.0); MEAN CORPUSCULAR HEMOGLOBIN 29 PG (26.0-33.0); MEAN CORPUSCULAR HGB CONC 34 g/dl (31.0-36.0); MEAN CORPUSCULAR VOLUME 87 fL (82-100); MONOCYTES # (AUTO) 0.3 /CMM (0.1-1.30); MONOCYTES % (AUTO) 6.5 % (2.0-12.0); NEUTROPHILS # (AUTO) 3.2 /CMM (1.8-8.9); NEUTROPHILS % (AUTO) 61.9 % (43.0-81.0); PLATELET COUNT (AUTO) 229 /CMM (150-450); RDW COEFFICIENT OF VARIATION 16.6 (11.5-15.0); RED BLOOD CELL COUNT(AUTO) 2.77 MIL/uL (4.0-5.2); WHITE BLOOD COUNT (AUTO) 5.1 K/uL (4.3-11.0)
[2017-02-17 07:18] LABS: CALCIUM, SERUM 7.4 mg/dL (8.5-10.1); CREATININE 0.8 mg/dL (0.6-1.3); POTASSIUM 3.5 mmol/L (3.5-5.1)
[2017-02-17 08:00] VITALS: BP 140/71
--- NOTE | 2017-02-17 08:00 | NUR ---
MS RN NOTES PATIENT IN BED RESTING FAMILY AT BEDSIDE. CALL LIGHT WITHIN REACH. BED IN LOW LOCKED POSITION. WILL CONTINUE TO MONITOR.
[2017-02-17] MEDS: BOOST PLUS FOOD-VANILLA 237 ML BOX PO SCH ×2 (08:46→17:29)
[2017-02-17] MEDS: SULFAMETH/TRIMETH 800/160 MG 1 UDTAB TABLET PO SCH ×2 (08:47→21:12)
[2017-02-17] MEDS: LEVOTHYROXINE SODIUM 50 MCG TABLET PO SCH (08:47)
[2017-02-17] MEDS: MEGESTROL ACETATE 40 MG TABLET PO SCH ×2 (08:47→17:29)
[2017-02-17] MEDS: PANTOPRAZOLE 40 MG TABLET.DR PO SCH (08:47)
[2017-02-17] MEDS: DOCUSATE SODIUM 100 MG CAPSULE PO SCH ×2 (08:48→17:29)
[2017-02-17] MEDS: DONEPEZIL 5 MG TABLET PO SCH (08:48)
[2017-02-17] MEDS: MORPHINE SULFATE SR 15 MG TABLET.SA PO SCH ×3 (08:48→21:00)
[2017-02-17] MEDS: HYDROCHLOROTHIAZIDE 25 MG TABLET PO SCH (08:49)
[2017-02-17] MEDS: VALSARTAN 80 MG TABLET PO SCH (08:49)
[2017-02-17] MEDS: MEMANTINE HCL 5 MG TABLET PO SCH ×2 (08:49→17:29)
[2017-02-17 16:00] VITALS: BP 145/73
--- NOTE | 2017-02-17 16:30 | NUR ---
MS RN NOTES PATIENT SEEN AND EVALUATED BY DR. HEREIDA, ALSO DR HEREDIA MET WITH PATIENTS FAMILY DISCUSSED CARE FURTHER.
--- NOTE | 2017-02-17 18:00 | NUR ---
MS RN NOTES PATIENTS FAMILY STATES HOME IS NOT READY FOR PATENTS DISCHARGE. REQUESTING A HOSPITAL BED. PULP REFINER OPERATOR MADE AWARE STATES FOR PATIENT TO STAY OVER NIGHT FOR HOSPITAL BED.
--- NOTE | 2017-02-17 19:00 | NUR ---
MS RN NOTES PATIENT IN BED RESTING WITH FAMILY AT BEDSIDE. ALL DUE MEDICATIONS GIVEN. ALL NEEDS MET. WILL ENDORSE TO PM SHIFT JON.
--- NOTE | 2017-02-17 19:30 | NUR ---
CHUCHO NOTES PX AWAKE, REFUSED TO BE TOUCHED TO DO PHYSICAL EXAM, SHOUTED "GET OUT OF HERE" EVEN AFTER EDUCATING ON THE NEED FOR EXAM. Addendum: 02/17/17 at 2148 by MARIELA KAUR RN NOTED LEFT KNEE DRESSING, NO OBVIOUS BLEEDING BUT PX REFUSED TO BE TOUCHED OR TO HAVE WOUND ON LEFT KNEE PICTURE TAKEN. Addendum: 02/17/17 at 2157 by MARIELA KAUR RN WRONG ENTRY, WRONG PATIENT
[2017-02-17 20:00] VITALS: BP 133/71
--- NOTE | 2017-02-17 20:00 | NUR ---
RN NOTES RECEIVED PX AWAKE, ALERT, SHOUTS "I AM NOT CRAZY, I AM NOT SUICIDAL, WHY ARE YOU SENDING ME TO PSYCH FACILITY?", PX CONSTANTLY SHOUTING AND REFUSES TO STOP, AND LISTEN TO HOSPITAL STAFF; EXPLAINED WHY PX IS IN THE HOSPITAL AND THE NEED TO BE DISCHARGED MEDICALLY; WAS SEEN BY [facility] CRISIS TEAM EARLIER AND PUT ON HOLD 1314; PX REFUSED TO ANSWER QUESTIONS RELATED TO ORIENTATION, REFUSED TO BE TOUCHED BY RN FOR PHYSCIAL EXAM; SECURITY AT BEDSIDE; TELEPHONE REPORT GIVEN TO TE PATRICK RN. Addendum: 02/17/17 at 2157 by MARIELA KAUR RN WRONG ENTRY, WRONG PATIENT
--- NOTE | 2017-02-17 20:00 | NUR ---
RN NOTES RECEIVED PX AWAKE, ALERT, STATELESS AND ESTONIAN SPEAKING, ON ROOM AIR, WITH PIV FLUSHABLE WITH SALINE NO S/SX INFLITRATION, DENIED PAIN, SOB, N/V, DIZZINESS; PX ABLE TO MOVE FROM SIDE TO SIDE BUT SLOWLY, FAMILY AT BEDSIDE; DISCUSSED PLAN OF CARE.
--- NOTE | 2017-02-17 20:40 | NUR ---
CHUCHO NOTES PX DISCHARGED FROM MED-SURG AND TRANSFERRED TO GPS, IT TOOK 40 MINUTES EXPLAINING THE NEED FOR HOLD/5150 PX REFUSED TO ENTER GPS UNIT; 2 STAFF FROM SECURITY AND BOBJ DEVELOPER ALREADY HELPED TO TRANSFER PX TO GPS; ALL BELONGINGS TRANSFERRED WELL INCLUDING 1 PACK CIGARETTE AND 1 REGISTERED MIDWIFE, ENDORSED TO LOCAL DELIVERY TRUCK DRIVER; PX REFUSED TO SIGN DISCHARGE PAPER, STILL REFUSED TO BE TOUCH INCLUDING PHYSICAL EXAM, CHANGE OF DRESSING OF LEFT KNEE DRESSING, OR TAKE PICTURE OF LEFT KNEE SX. BEDSIDE REPORT GIVEN TO TE RANKIN. Addendum: 02/17/17 at 2157 by MARIELA KAUR RN WRONG ENTRY, WRONG PATIENT
--- NOTE | 2017-02-17 21:00 | NUR ---
RN NOTES FAMILY AND PX REFUSED MS CONTIN, PX AND DAUGHTER AGREED THAT PX IS NOT IN PAIN, EDUCATED ON ITS NEED; OTHER DUE MEDS GIVEN.
[2017-02-17] MEDS: ESCITALOPRAM OXALATE (10 MG) 10 MG TABLET PO SCH (21:12)
--- NOTE | 2017-02-18 06:41 | NUR ---
RN NOTES ALEJANDRINA ZAMUDIO HELPED CLEAN PX, CHANGED DIAPER WITH 1 URINE, PERICARE RENDERED, FAMILY REFUSED TO CLEAN UPPER PART OF BODY, SKIN REMAINED INTACT, PIV REMAINED INTACT AND PATENT; REPOSITIONED; PX DENIED PAIN, SOB, N/V, DIZZINESS; WILL ENDORSE TO NEXT RN.
--- NOTE | 2017-02-18 07:20 | NUR ---
M/S RN - OPENING NOTE PT SLEEPING IN BED. NO S/S OF DISTRESS. FAMILY MEMBER AT BEDSIDE. IV PATENT AND INTACT. SIDE RAILS UPX2, CALL LIGHT WITHIN REACH.
[2017-02-18 08:00] VITALS: BP 140/69
[2017-02-18] MEDS: BOOST PLUS FOOD-VANILLA 237 ML BOX PO SCH (08:00)
[2017-02-18] MEDS: DONEPEZIL 5 MG TABLET PO SCH (08:53)
[2017-02-18] MEDS: LEVOTHYROXINE SODIUM 50 MCG TABLET PO SCH (08:53)
[2017-02-18] MEDS: MEGESTROL ACETATE 40 MG TABLET PO SCH (08:54)
[2017-02-18] MEDS: PANTOPRAZOLE 40 MG TABLET.DR PO SCH (08:55)
[2017-02-18] MEDS: VALSARTAN 80 MG TABLET PO SCH (08:55)
[2017-02-18] MEDS: DOCUSATE SODIUM 100 MG CAPSULE PO SCH (08:56)
[2017-02-18] MEDS: SULFAMETH/TRIMETH 800/160 MG 1 UDTAB TABLET PO SCH (08:56)
[2017-02-18] MEDS: MEMANTINE HCL 5 MG TABLET PO SCH (08:57)
[2017-02-18] MEDS: HYDROCHLOROTHIAZIDE 25 MG TABLET PO SCH (08:57)
[2017-02-18] MEDS: MORPHINE SULFATE SR 15 MG TABLET.SA PO SCH (09:00)
--- NOTE | 2017-02-18 09:00 | NUR ---
M/S RN - HELD MS CONTINUE, FAMILY AND PATIENT REFUSING MEDICATION AT THIS TIME.
[2017-02-18 10:50] LABS: CALCIUM, SERUM 7.6 mg/dL (8.5-10.1); CREATININE 0.8 mg/dL (0.6-1.3); POTASSIUM 3.2 mmol/L (3.5-5.1)
[2017-02-18 16:00] VITALS: BP 138/78
--- NOTE | 2017-02-18 16:44 | NUR ---
M/S RN - DISCHARGE ORDER RECEIVED FOR DISCHARGE HOME WITH HOME HEALTH. PT STABLE. IV DC'D WITH CATHETER INTACT. DISCHARGE INSTRUCTIONS GIVEN TO PT'S DAUGHTER VERBALLY AND WRITTEN. PRESCRIPTIONS GIVEN TO DAUGHTER. ALL BELONGINGS CONFIRMED WITH PT AT TIME OF DISCHARGE. PT GIVEN LUMBAR BRACE. REPORT GIVEN TO AMBULANCE STAFF. PT TRANSPORTED TO HOME VIA AMBULANCE.
== END 2017-02-18 16:50 | disposition home health service (06) | DRG 841 ==
LOC: ER 10:37 → MEDSG2 14:14
PROVIDERS: ADMIT Internal Medicine; ATTEND Internal Medicine
PROC: 30233N1 Transfusion of Nonautologous Red Blood Cells into Peripheral Vein, Percutaneous Approach (ICD-10-PCS; 2017-02-11)
PROC: 07DR3ZX Extraction of Iliac Bone Marrow, Percutaneous Approach, Diagnostic (ICD-10-PCS; principal; 2017-02-12)
DX: C90.00 Multiple myeloma not having achieved remission (principal); M48.56XA Collapsed vertebra, not elsewhere classified, lumbar region, initial encounter for fracture; E44.0 Moderate protein-calorie malnutrition; E87.1 Hypo-osmolality and hyponatremia; N39.0 Urinary tract infection, site not specified; D64.9 Anemia, unspecified; M54.9 Dorsalgia, unspecified; E03.9 Hypothyroidism, unspecified; E78.5 Hyperlipidemia, unspecified; R32 Unspecified urinary incontinence; D47.2 Monoclonal gammopathy; E87.6 Hypokalemia; F03.90 Unspecified dementia, unspecified severity, without behavioral disturbance, psychotic disturbance, mood disturbance, and anxiety; I10 Essential (primary) hypertension; K21.9 Gastro-esophageal reflux disease without esophagitis; Z68.26 Body mass index [BMI] 26.0-26.9, adult; D63.8 Anemia in other chronic diseases classified elsewhere; B96.20 Unspecified Escherichia coli [E. coli] as the cause of diseases classified elsewhere; R93.5 Abnormal findings on diagnostic imaging of other abdominal regions, including retroperitoneum
CPT/HCPCS: 36415; 71010-TC; 71250-TC; 72158-TC; 78306-TC; 80048-TC; 80053-TC; 80061-TC; 80076-TC; 81000-TC; 82232; 82272-TC; 82728-TC; 82746; 82784; 83540-TC; 83605-TC; 83615-TC; 83735-TC; 84100-TC; 84155; 84165; 84439-TC; 84443-TC; 85025-TC; 85027-TC; 85045-TC; 85610-TC; 85730-TC; 86304; 86334; 86850-TC; 86921-TC; 87040-TC; 87081-TC; 87086-TC; 87186-TC; 93307-TC; 94799-TC; 97001-TC; 97110-TC; 97112-TC; 97116-TC; 97530-TC; A4606; A6402; A9503; A9579; J0696; J1170; J2270; J2405; J3490; J7030; J7050; J7060; P9016-BL; Q0162; Z7610

== ENCOUNTER 2017-02-25 20:20 | Inpatient (IN) | payer MEDICARE, MEDICAID ==
[~2017-02-25] VITALS: Ht 172.7 cm; Wt 54.9 kg
[~2017-02-25 20:20] MED LIST changes: -IBUP-1955 PO; -RIVA1PAT3 TD
--- NOTE | 2017-02-25 20:26 | NUR ---
PT BIB FAMILY TO ER BED 11. WAS SENT BY PMD FOR POSSIBLE BLOOD TRANSFUSION. LOW H&H 7.7/23.3. HX OF MULTIPLE MYELOMA AND IS SET FOR RADIATION TREATMENT IN 3 DAYS. GOWNED AND PLACED ON MONITOR. AWAITING MD THOMAS.
--- NOTE | 2017-02-25 20:30 | NUR ---
; Avtar, tech ed/woodshop teacher/ oncologist
--- NOTE | 2017-02-25 21:02 | NUR ---
IV LINE STARTED. BLOOD DRAWN AND SENT TO LAB.
[2017-02-25 21:24] LABS: BASOPHILS # (AUTO) 0.1 /CMM (0.0-0.2); BASOPHILS % (AUTO) 1.2 % (0.0-2.0); EOSINOPHILS # (AUTO) 0.1 /CMM (0.0-0.7); EOSINOPHILS % (AUTO) 1.6 % (0.0-6.0); HEMATOCRIT 26 % (33-45); HEMOGLOBIN 8.1 g/dL (11.5-14.8); LYMPHOCYTES # (AUTO) 1.3 /CMM (0.8-4.8); LYMPHOCYTES % (AUTO) 28.7 % (20.0-44.0); MEAN CORPUSCULAR HEMOGLOBIN 28 PG (26.0-33.0); MEAN CORPUSCULAR HGB CONC 32 g/dl (31.0-36.0); MEAN CORPUSCULAR VOLUME 87 fL (82-100); MONOCYTES # (AUTO) 0.3 /CMM (0.1-1.30); MONOCYTES % (AUTO) 5.8 % (2.0-12.0); NEUTROPHILS # (AUTO) 2.8 /CMM (1.8-8.9); NEUTROPHILS % (AUTO) 62.7 % (43.0-81.0); PLATELET COUNT (AUTO) 381 /CMM (150-450); RDW COEFFICIENT OF VARIATION 15.7 (11.5-15.0); RED BLOOD CELL COUNT(AUTO) 2.95 MIL/uL (4.0-5.2); WHITE BLOOD COUNT (AUTO) 4.6 K/uL (4.3-11.0)
[2017-02-25 21:29] LABS: CALCIUM, SERUM 7.4 mg/dL (8.5-10.1); POTASSIUM 4.4 mmol/L (3.5-5.1)
--- NOTE | 2017-02-25 21:34 | NUR ---
CALLED DR HEREDIA AND LEFT VOICEMAIL TO CALL BACK.
[2017-02-25] MEDS ORDERED: IV NS 0.9% 500 ML BAG IV ONE (22:00)
[2017-02-25] MEDS ORDERED: IV NS 0.9% 500 ML IV ONE (22:01)
[2017-02-25] MEDS ORDERED: IV SET PRIMARY 1 EA INFUS.SET MC ONE (22:02)
--- NOTE | 2017-02-25 22:25 | NUR ---
REPORT GIVEN TO ASHLEY. PT AWAITING TRANSFER TO FLOOR.
[2017-02-25 22:30] VITALS: BP 123/67
[2017-02-25] MEDS ORDERED: MAGNESIUM HYDROXIDE 30 ML UDC PO PRN (22:30)
[2017-02-25] MEDS ORDERED: ZOLPIDEM TARTRATE 5 MG TABLET PO PRN (22:30)
[2017-02-25] MEDS ORDERED: ONDANSETRON HCL/PF 4 MG/2 ML VIAL IVP PRN (22:30)
[2017-02-25] MEDS ORDERED: Z GUARD REMEDY 2 OZ OINT TP PRN (22:30)
[2017-02-25] MEDS ORDERED: HYDROCODONE/APAP 5/325MG 1 EACH TABLET PO PRN (22:30)
[2017-02-25] MEDS ORDERED: MAG HYDROX/AL HYDROX/SIMETH 30 ML UDC PO PRN (22:30)
[2017-02-25] MEDS ORDERED: ACETAMINOPHEN 325 MG TABLET PO PRN (22:30)
--- NOTE | 2017-02-25 22:30 | NUR ---
MS RN ADMITTING NOTES: ADMITTED A 76 YO FEMALE PATIENT WHO WAS BROUGHT TO ER ADVISED BY PMD DUE TO LOW H/H. IN ER, HGB WAS CHECKED AT 8.1. PATIENT WAS BROUGHT TO MS FLOOR VIA TETO, AOX1-2, PUERTO RICAN SPEAKING, WITH DAUGHTER AND SON AT BEDSIDE TO HELP TRANSLATE. ON ROOM AIR, BREATHING EVEN AND UNLABORED. BREATH SOUNDS CLEAR TO AUSCULTATION. PATIENT HAS PIV ACCESS OVER LFA G 18 INTACT AND PATENT TO FLUSH. ADMITTING CARE DONE. ORIENTED TO UNIT. WILL CONT TO MONITOR.
[2017-02-25] MEDS ORDERED: IV NS 0.9% 1,000 ML ONE (22:51)
[2017-02-25] MEDS ORDERED: IV SET PRIMARY PUMP SET 1 EA INFUS.SET MC ONE (22:51)
[2017-02-25] MEDS: IV NS 0.9% 1,000 ML IV PRN (23:05)
[2017-02-25] MEDS ORDERED: ACYC400T PO (23:38)
[2017-02-25] MEDS ORDERED: LENA10CA PO (23:38)
[2017-02-25] MEDS ORDERED: ASPI81TA2 PO (23:38)
[2017-02-26] VITALS (11 sets, daily range): BP systolic 118–142; BP diastolic 67–79
[2017-02-26] MEDS ORDERED: clonazePAM 0.5 MG TABLET PO PRN (01:00)
--- NOTE | 2017-02-26 04:00 | NUR ---
RN NOTES: PATIENT APPEARS CONFUSED, PULLED OUT IV LINE. REINSERTED NEW PIV AT LFA G 20 AND SECURED WITH KERLIX. WILL CONT TO MONITOR.
[2017-02-26 06:54] LABS: BASOPHILS % (AUTO) 0.2 % (0.0-2.0); EOSINOPHILS # (AUTO) 0.1 /CMM (0.0-0.7); EOSINOPHILS % (AUTO) 1.5 % (0.0-6.0); HEMATOCRIT 23 % (33-45); HEMOGLOBIN 7.5 g/dL (11.5-14.8); LYMPHOCYTES # (AUTO) 1.6 /CMM (0.8-4.8); LYMPHOCYTES % (AUTO) 32.8 % (20.0-44.0); MEAN CORPUSCULAR HEMOGLOBIN 29 PG (26.0-33.0); MEAN CORPUSCULAR HGB CONC 34 g/dl (31.0-36.0); MEAN CORPUSCULAR VOLUME 87 fL (82-100); MONOCYTES # (AUTO) 0.3 /CMM (0.1-1.30); MONOCYTES % (AUTO) 6.1 % (2.0-12.0); NEUTROPHILS # (AUTO) 2.8 /CMM (1.8-8.9); NEUTROPHILS % (AUTO) 59.4 % (43.0-81.0); PLATELET COUNT (AUTO) 352 /CMM (150-450); RDW COEFFICIENT OF VARIATION 16.5 (11.5-15.0); RED BLOOD CELL COUNT(AUTO) 2.59 MIL/uL (4.0-5.2); WHITE BLOOD COUNT (AUTO) 4.8 K/uL (4.3-11.0)
[2017-02-26 07:05] LABS: ALBUMIN 2.3 g/dL (3.4-5.0); BILIRUBIN,TOTAL 0.2 mg/dL (0.2-1.0); CREATININE 0.8 mg/dL (0.6-1.3); MAGNESIUM 2.4 mg/dL (1.8-2.4); PHOSPHORUS 2.9 mg/dL (2.5-4.9); POTASSIUM 3.9 mmol/L (3.5-5.1); TOTAL PROTEIN, SERUM 10.8 g/dL (6.4-8.2)
--- NOTE | 2017-02-26 07:40 | NUR ---
MS RN OPENING NOTES: RECEIVED PT. FROM BANKING SERVICES OFFICER NURSE IN STABLE CONDITION. PATIENT SITTING ON BED, AOX2, ON ROOM AIR. NO DISTRESS OR PAIN NOTED AT THIS TIME. IV ON LEFT FOREARM 20G WITH NS RUNNING AT 75 ML/HR. INTACT AND PATENT, NO REDNESS OR INFILTRATION NOTED. BED IN LOW LOCKED POSITION, SIDE RAILS UP X2, CALL LIGHT WITHIN REACH. WILL CONTINUE TO MONITOR.
--- NOTE | 2017-02-26 07:40 | NUR ---
MS RN CLOSING NOTES: PATIENT IN BED, AOX1, ON ROOM AIR, BREATHING EVEN AND UNLABORED. PIV OVER LFA G 20 INTACT AND PATENT TO FLUSH. NO ACUTE CHANGE IN CONDITION NOTED THROUGH SHIFT. ENDORSED TO CHUCHO BELLA FOR JON.
[2017-02-26] MEDS: PANTOPRAZOLE 40 MG VIAL IV SCH (09:48)
[2017-02-26] MEDS: MEMANTINE HCL 5 MG TABLET PO SCH ×2 (09:49→17:26)
[2017-02-26] MEDS: ASPIRIN 81 MG TAB.CHEW PO SCH (09:49)
[2017-02-26] MEDS: LEVOTHYROXINE SODIUM 50 MCG TABLET PO SCH (09:49)
[2017-02-26] MEDS: ESCITALOPRAM OXALATE (10 MG) 10 MG TABLET PO SCH (09:49)
[2017-02-26] MEDS: ACYCLOVIR 200 MG CAPSULE PO SCH ×3 (09:50→17:26)
[2017-02-26] MEDS: HYDROCHLOROTHIAZIDE 25 MG TABLET PO SCH (11:00)
[2017-02-26] MEDS: VALSARTAN 80 MG TABLET PO SCH (11:00)
--- NOTE | 2017-02-26 14:24 | NUR ---
Patient will receive [address] Yusuf's order
[2017-02-26] MEDS ORDERED: IV NS 0.9% 250 ML IV ONE (14:29)
[2017-02-26] MEDS ORDERED: BLOOD IV SET 1 EA INFUS.SET MC ONE (14:29)
--- NOTE | 2017-02-26 18:39 | NUR ---
MS RN CLOSING NOTES: PT. STABLE CONDITION LYING IN BED, AOX2, ON ROOM AIR. NO DISTRESS OR PAIN NOTED AT THIS TIME. IV ON LEFT FOREARM 20G INTACT AND PATENT. NO REDNESS OR INFILTRATION NOTED. BED IN LOW LOCKED POSITION, SIDE RAILS UP X2, CALL LIGHT WITHIN REACH. PERSONAL ENVIRONMENTAL MONITORING TECHNICIAN AT BEDSIDE. WILL ENDORSE TO ASSISTANT SECRETARY NURSE FOR JON
--- NOTE | 2017-02-26 19:20 | NUR ---
MS RN OPENING NOTES: PATIENT IN BED, AOX2, SWAZI SPEAKING. ON ROOM AIR, BREATHING EVEN AND UNLABORED. APPEARS CALM AND IN NO DISTRESS. BREATH SOUNDS CLEAR TO AUSCULTATION, WITH NO SIGNS OF CONGESTION OR AT THIS TIME. PATIENT HAS JUST FINISHED 1 UNIT PRBC. PIV ACCESS OVER LFA G 20 INTACT AND PATENTLY INFUSING WITH NS RUNNING AT 75 ML/HR. PROVIDED FOR COMFORT AND SAFETY. FAMILY AT BEDSIDE. WILL CONT TO MONITOR.
[2017-02-26] MEDS: IV NS 0.9% 1,000 ML IV PRN (20:48)
--- NOTE | 2017-02-26 21:30 | NUR ---
RN NOTES: PER DAUGHTER, PATIENT FELT A "STINGING SENSATION" OVER HER LEFT HIP, BUT WAS UNABLE TO SCALE LEVEL OF PAIN. TYLENOL 650 MG PO WAS ADMINISTERED. WILL CONT TO MONITOR.
[2017-02-26] MEDS ORDERED: DONEPEZIL 5 MG TABLET PO SCH (22:00)
--- NOTE | 2017-02-26 22:30 | NUR ---
RN NOTES: PATIENT COMPLAINED OF PAIN OVER PIV SITE AT RFA. D'CODY LINE AND REINSERTED NEW IV LINE OVER R WRIST G20.
--- NOTE | 2017-02-27 06:54 | NUR ---
MS RN CLOSING NOTES; PATIENT IN BED, ASLEEP AT THIS TIME. BREATHING EVEN AND UNLABORED. IN NO APPARENT DISTRESS. DUE MEDS GIVEN. PROVIDED FOR COMFORT AND SAFETY. NO ACUTE CHANGE IN CONDITION NOTED THROUGH SHIFT. WILL ENDORSE TO AM RN FOR JON.
[2017-02-27 07:12] LABS: BASOPHILS % (AUTO) 0.3 % (0.0-2.0); EOSINOPHILS # (AUTO) 0.1 /CMM (0.0-0.7); EOSINOPHILS % (AUTO) 1.3 % (0.0-6.0); HEMATOCRIT 25 % (33-45); HEMOGLOBIN 8.6 g/dL (11.5-14.8); LYMPHOCYTES # (AUTO) 1.3 /CMM (0.8-4.8); LYMPHOCYTES % (AUTO) 32.9 % (20.0-44.0); MEAN CORPUSCULAR HEMOGLOBIN 29 PG (26.0-33.0); MEAN CORPUSCULAR HGB CONC 34 g/dl (31.0-36.0); MEAN CORPUSCULAR VOLUME 87 fL (82-100); MONOCYTES # (AUTO) 0.2 /CMM (0.1-1.30); NEUTROPHILS # (AUTO) 2.4 /CMM (1.8-8.9); NEUTROPHILS % (AUTO) 60.5 % (43.0-81.0); PLATELET COUNT (AUTO) 289 /CMM (150-450); RDW COEFFICIENT OF VARIATION 15.6 (11.5-15.0); RED BLOOD CELL COUNT(AUTO) 2.93 MIL/uL (4.0-5.2)
--- NOTE | 2017-02-27 07:33 | NUR ---
MS RN OPENING NOTES: RECEIVED PT. FROM HUMAN RESOURCES MANAGER NURSE IN STABLE CONDITION. PATIENT SITTING ON BED, AOX2, ON ROOM AIR. NO DISTRESS OR PAIN NOTED AT THIS TIME. IV ON RIGHT WRIST 20G WITH NS RUNNING AT 75 ML/HR. INTACT AND PATENT, NO REDNESS OR INFILTRATION NOTED. BED IN LOW LOCKED POSITION, SIDE RAILS UP X2, CALL LIGHT WITHIN REACH. WILL CONTINUE TO MONITOR.
[2017-02-27 08:00] VITALS: BP_SYST 129; BP_SYST 135; BP_DIAS 70; BP_DIAS 76
[2017-02-27] MEDS: ESCITALOPRAM OXALATE (10 MG) 10 MG TABLET PO SCH (08:50)
[2017-02-27] MEDS: MEMANTINE HCL 5 MG TABLET PO SCH (08:50)
[2017-02-27] MEDS: LEVOTHYROXINE SODIUM 50 MCG TABLET PO SCH (08:50)
[2017-02-27] MEDS: PANTOPRAZOLE 40 MG VIAL IV SCH (08:50)
[2017-02-27 08:51] VITALS: BP 135/70
[2017-02-27] MEDS: ASPIRIN 81 MG TAB.CHEW PO SCH (08:51)
[2017-02-27] MEDS: HYDROCHLOROTHIAZIDE 25 MG TABLET PO SCH (08:51)
[2017-02-27] MEDS: VALSARTAN 80 MG TABLET PO SCH (08:51)
[2017-02-27] MEDS: ACYCLOVIR 200 MG CAPSULE PO SCH (08:51)
--- NOTE | 2017-02-27 10:00 | NUR ---
RN NOTES PT SEEN AND EXAMINED BY DR AGUIRRE WITH ORDERS FOR DISCHARGE, WILL CONTINUE TO MONITOR AND ASSIST WITH DISCHARGE PROCESS
--- NOTE | 2017-02-27 11:50 | NUR ---
RN NOTES: PT. IN STABLE CONDITION. PATIENT SITTING UP IN BED, AOX2, ON ROOM AIR. NO DISTRESS OR PAIN NOTED AT THIS TIME. IV ON RIGHT WRIST 20G AND ID BAND WITH NO ASE NOTED.PICTURES OF SKIN TAKEN AND PLACED IN CHART. DISCHARGE INSTRUCTIONS REVIEWED WITH ERICA SON IN LAW PER JOEBRITTNYKeyla DAUGHTER ERICA MAY RANGE SCIENTIST. MEDICATIONS IN PHARMACY RETURNED TO PT. PT ASSISTED TO LOBBY BY ALEJANDRINA, DISCHARGED IN STABLE CONDITION
== END 2017-02-27 11:50 | disposition home or self-care (01) | DRG 812 ==
LOC: ER 20:28 → MEDSG2 21:33
PROVIDERS: ADMIT Family Medicine; ATTEND Family Medicine
PROC: 30233N1 Transfusion of Nonautologous Red Blood Cells into Peripheral Vein, Percutaneous Approach (ICD-10-PCS; principal; 2017-02-26)
DX: D64.81 Anemia due to antineoplastic chemotherapy (principal); C90.00 Multiple myeloma not having achieved remission; M48.56XA Collapsed vertebra, not elsewhere classified, lumbar region, initial encounter for fracture; E03.9 Hypothyroidism, unspecified; E78.5 Hyperlipidemia, unspecified; F03.90 Unspecified dementia, unspecified severity, without behavioral disturbance, psychotic disturbance, mood disturbance, and anxiety; F32.9 Major depressive disorder, single episode, unspecified; F41.9 Anxiety disorder, unspecified; G89.29 Other chronic pain; I10 Essential (primary) hypertension; K21.9 Gastro-esophageal reflux disease without esophagitis; T45.1X5A Adverse effect of antineoplastic and immunosuppressive drugs, initial encounter; Z79.899 Other long term (current) drug therapy; D47.2 Monoclonal gammopathy
CPT/HCPCS: 36415; 80048-TC; 80053-TC; 83735-TC; 84100-TC; 85025-TC; 86850-TC; 86921-TC; 87081-TC; A4606; C9113; J7030; J7040; J7050; P9016-BL; Z7610

== ENCOUNTER 2017-04-06 14:31 | Outpatient (CLI) | payer MEDICARE, MEDICAID ==
[~2017-04-06 14:31] MED LIST changes: +ACYC400T PO; +ASPI81TA2 PO; +LENA10CA PO
[2017-04-06 14:52] LABS: BASOPHILS % (AUTO) 0.8 % (0.0-2.0); EOSINOPHILS # (AUTO) 0.2 /CMM (0.0-0.7); EOSINOPHILS % (AUTO) 3.8 % (0.0-6.0); HEMATOCRIT 33 % (33-45); LYMPHOCYTES # (AUTO) 1.3 /CMM (0.8-4.8); LYMPHOCYTES % (AUTO) 22.1 % (20.0-44.0); MEAN CORPUSCULAR HEMOGLOBIN 30 PG (26.0-33.0); MEAN CORPUSCULAR HGB CONC 34 g/dl (31.0-36.0); MEAN CORPUSCULAR VOLUME 89 fL (82-100); MONOCYTES # (AUTO) 0.5 /CMM (0.1-1.30); MONOCYTES % (AUTO) 8.9 % (2.0-12.0); NEUTROPHILS % (AUTO) 64.4 % (43.0-81.0); PLATELET COUNT (AUTO) 395 /CMM (150-450); RDW COEFFICIENT OF VARIATION 16.1 (11.5-15.0); RED BLOOD CELL COUNT(AUTO) 3.67 MIL/uL (4.0-5.2)
[2017-04-06 15:00] LABS: CALCIUM, SERUM 7.9 mg/dL (8.5-10.1); CREATININE 0.9 mg/dL (0.6-1.3)
[2017-04-06 15:11] LABS: ALBUMIN 2.7 g/dL (3.4-5.0); BILIRUBIN,TOTAL 0.5 mg/dL (0.2-1.0)
== END 2017-04-06 23:59 | disposition home or self-care (01) ==
LOC: LAB 14:31
PROVIDERS: ATTEND Internal Medicine Hematology & Oncology
DX: C90.00 Multiple myeloma not having achieved remission (principal)
CPT/HCPCS: 36415; 80053-TC; 85025-TC

== ENCOUNTER 2017-07-13 09:06 | Outpatient (CLI) | payer MEDICARE, MEDICAID | END 2017-07-13 23:59 | disposition home or self-care (01) | LOC: CT 09:06 | PROVIDERS: ATTEND Internal Medicine Hematology & Oncology | DX: I31.3 Pericardial effusion (noninflammatory) (principal); I51.7 Cardiomegaly; I25.10 Atherosclerotic heart disease of native coronary artery without angina pectoris; I70.0 Atherosclerosis of aorta; R59.0 Localized enlarged lymph nodes; K44.9 Diaphragmatic hernia without obstruction or gangrene; K40.90 Unilateral inguinal hernia, without obstruction or gangrene, not specified as recurrent; K57.30 Diverticulosis of large intestine without perforation or abscess without bleeding; M43.8X4 Other specified deforming dorsopathies, thoracic region; M51.04 Intervertebral disc disorders with myelopathy, thoracic region; M51.06 Intervertebral disc disorders with myelopathy, lumbar region; M43.8X6 Other specified deforming dorsopathies, lumbar region; E83.51 Hypocalcemia; Z85.79 Personal history of other malignant neoplasms of lymphoid, hematopoietic and related tissues | CPT/HCPCS: 71250-TC ==

== ENCOUNTER 2017-12-21 10:51 | Outpatient (CLI) | payer MEDICARE, MEDICAID ==
[~2017-12-21 10:51] MED LIST changes: +ASPI-1169 PO; -ASPI81TA2 PO
[2017-12-21] MEDS ORDERED: GADOVERSETAMIDE 5 MMOL/10 ML VIAL IJ ONE (10:52)
== END 2017-12-21 23:59 | disposition home or self-care (01) ==
LOC: MRI 10:51
PROVIDERS: ATTEND Internal Medicine Hematology & Oncology
DX: M48.56XA Collapsed vertebra, not elsewhere classified, lumbar region, initial encounter for fracture (principal); M48.061 Spinal stenosis, lumbar region without neurogenic claudication; M48.07 Spinal stenosis, lumbosacral region; N28.1 Cyst of kidney, acquired; C90.00 Multiple myeloma not having achieved remission; M51.27 Other intervertebral disc displacement, lumbosacral region; M12.88 Other specific arthropathies, not elsewhere classified, other specified site; R15.9 Full incontinence of feces
CPT/HCPCS: 72158; A9579

== ENCOUNTER 2018-03-16 08:39 | Outpatient (CLI) | payer MEDICARE, MEDICAID ==
[~2018-03-16 08:39] MED LIST changes: +CLON0.5T12 PO; -CLON0.5T4 PO
== END 2018-03-16 23:59 | disposition home or self-care (01) ==
LOC: RAD 08:39
PROVIDERS: ATTEND Internal Medicine Hematology & Oncology
DX: M51.06 Intervertebral disc disorders with myelopathy, lumbar region (principal); M51.04 Intervertebral disc disorders with myelopathy, thoracic region; C90.00 Multiple myeloma not having achieved remission
CPT/HCPCS: 77075-TC